=== PATIENT | male | born 1955 | race Caucasian/White ===

== ENCOUNTER 2016-04-18 11:23 | Emergency (ER) | payer BC, OTHER ==
[2016-04-18] MEDS ORDERED: OXYCODONE-ACETAMINOPHEN 5-325 MG TABLET PO ONE (11:41)
--- NOTE | 2016-04-18 11:41 | ER Document Report ---
ED Medical Screen (RME) - General Stated Complaint: BACK PAIN Notes: onest: last night patient is a 61 year old male p/w right flank pain, local without radiation low UOP, no blood in urine h/o kidney stones I have greeted and performed a rapid initial assessment of this patient. A comprehensive ED assessment and evaluation of the patient, analysis of test results and completion of the medical decision making process will be conducted by additional ED providers. TRAVEL OUTSIDE OF THE [place] IN LAST 30 DAYS: No - Related Data Allergies/Adverse Reactions: ciprofloxacin [From Cipro] Allergy (Verified 04/18/16 11:39) ciprofloxacin HCl [From Cipro] Allergy (Verified 04/18/16 11:39) Penicillins Allergy (Verified 04/18/16 11:39) sulfamethoxazole [From Bactrim] Allergy (Verified 04/18/16 11:39) trimethoprim [From Bactrim] Allergy (Verified 04/18/16 11:39) Past Medical History - Past Medical History Cardiac Medical History: Reports: Hx Hypercholesterolemia Renal/ Medical History: Reports: Hx Kidney Stones Past Surgical History: Reports: Hx Appendectomy - Immunizations Hx Diphtheria, Pertussis, Tetanus Vaccination: Yes
[2016-04-18 12:10] LABS: ABSOLUTE EOSINOPHILS # (AUTO) 0.1 10^3/uL (0.0-0.6); ABSOLUTE LYMPHOCYTES (AUTO) 1.1 10^3/uL (0.5-4.7); ABSOLUTE NEUT (AUTO) 11.8 10^3/uL (1.7-8.2); BASOPHILS % (AUTO) 0.3 % (0-2); EOSINOPHILS % (AUTO) 0.6 % (0-6); HEMATOCRIT 43.7 % (37.9-51.0); HEMOGLOBIN 14.9 g/dL (13.5-17.0); MEAN CORPUSCULAR HEMOGLOBIN 31.9 pg (27.0-33.4); MEAN CORPUSCULAR HGB CONC 34.2 g/dL (32.0-36.0); MEAN CORPUSCULAR VOLUME 93 fl (80-97); MONOCYTES % (AUTO) 6.8 % (3-13); RED BLOOD COUNT 4.68 10^6/uL (4.35-5.55); RED CELL DISTRIBUTION WIDTH 12.8 % (11.5-14.0); SEGMENTED NEUTROPHILS % (AUTO) 84.3 % (42-78)
[2016-04-18 12:22] LABS: ALANINE AMINOTRANSFERASE 35 U/L (21-72); ALBUMIN 4.1 g/dL (3.5-5.0); ALKALINE PHOSPHATASE 64 U/L (38-126); ANION GAP 10 (5-19); ASPARTATE AMINO TRANSFERASE 17 U/L (17-59); BLOOD UREA NITROGEN 26 mg/dL (7-20); CALCIUM 9.6 mg/dL (8.4-10.2); CARBON DIOXIDE 27 mmol/L (22-30); CHLORIDE 101 mmol/L (98-107); CREATININE RESULT 1.42 mg/dL (0.52-1.25); GLUCOSE 107 mg/dL (75-110); POTASSIUM 4.6 mmol/L (3.6-5.0); SODIUM 137.8 mmol/L (137-145); TOTAL PROTEIN 6.9 g/dL (6.3-8.2)
[2016-04-18 12:26] LABS: APPEARANCE,URINE SLIGHTLY-CLOUDY; BILIRUBIN,URINE NEGATIVE (NEGATIVE); GLUCOSE, URINE NEGATIVE (NEGATIVE); KETONES,URINE 20 mg/dL (NEGATIVE); LEUKOCYTE ESTERASE,URINE NEGATIVE (NEGATIVE); NITRITE,URINE NEGATIVE (NEGATIVE); PROTEIN,URINE NEGATIVE (NEGATIVE); UROBILINOGEN,URINE NEGATIVE mg/dL (<2.0)
[2016-04-18] MEDS ORDERED: TAMSULOSIN HCL 0.4 MG CAP.SR.24H PO ONE (14:46)
--- NOTE | 2016-04-18 15:00 | ER Document Report ---
ED General - General Chief Complaint: Possible Kidney Stone Stated Complaint: BACK PAIN TRAVEL OUTSIDE OF THE [place] IN LAST 30 DAYS: No - HPI Patient complains to provider of: right flank pain Notes: Patient coming in for evaluation of right flank pain. Patient has history of kidney stones. Patient states right flank pain acute onset similar to kidney stones the past. Patient states she has multiple kidney stones. Denies any fevers chills nausea vomiting trauma - Related Data Allergies/Adverse Reactions: ciprofloxacin [From Cipro] Allergy (Verified 04/18/16 11:39) Penicillins Allergy (Verified 04/18/16 11:39) sulfamethoxazole [From Bactrim] Allergy (Verified 04/18/16 11:39) trimethoprim [From Bactrim] Allergy (Verified 04/18/16 11:39) Past Medical History - Social History Smoking Status: Current Every Day Smoker Chew tobacco use (# tins/day): No Frequency of alcohol use: None Drug Abuse: None Family History: Reviewed & Not Pertinent Patient has suicidal ideation: No Patient has homicidal ideation: No - Past Medical History Cardiac Medical History: Reports: Hx Hypercholesterolemia Renal/ Medical History: Reports: Hx Kidney Stones. Denies: Hx Peritoneal Dialysis Past Surgical History: Reports: Hx Appendectomy - Immunizations Hx Diphtheria, Pertussis, Tetanus Vaccination: Yes Review of Systems - Review of Systems Constitutional: No symptoms reported EENT: No symptoms reported Cardiovascular: No symptoms reported Respiratory: No symptoms reported Gastrointestinal: No symptoms reported Genitourinary: Flank pain Male Genitourinary: No symptoms reported Musculoskeletal: No symptoms reported Skin: No symptoms reported Hematologic/Lymphatic: No symptoms reported Neurological/Psychological: No symptoms reported -: Yes All other systems reviewed and negative Physical Exam - Vital signs Vitals: Temp Pulse Resp BP Pulse Ox 97.9 F 16 L 57 H 139/69 H 97 04/18/16 11:40 04/18/16 11:40 04/18/16 11:40 04/18/16 11:40 04/18/16 11:40 Interpretation: Normal - General General appearance: Appears well, Alert - HEENT Head: Normocephalic, Atraumatic Eyes: Normal Pupils: PERRL - Respiratory Respiratory status: No respiratory distress Chest status: Nontender Breath sounds: Normal Chest palpation: Normal - Cardiovascular Rhythm: Regular Heart sounds: Normal auscultation Murmur: No - Abdominal Inspection: Normal Distension: No distension Bowel sounds: Normal Tenderness: Nontender Organomegaly: No organomegaly - Back Back: Normal, Nontender - Extremities General upper extremity: Normal inspection, Nontender, Normal color, Normal ROM , Normal temperature General lower extremity: Normal inspection, Nontender, Normal color, Normal ROM , Normal temperature, Normal weight bearing. No: Pranay's sign - Neurological Neuro grossly intact: Yes Cognition: Normal Orientation: AAOx4 [place] Coma Scale Eye Opening: Spontaneous [place] Coma Scale Verbal: Oriented [place] Coma Scale Motor: Obeys Commands Jori Coma Scale Total: 15 Speech: Normal Motor strength normal: LUE, RUE, LLE, RLE Sensory: Normal - Psychological Associated symptoms: Normal affect, Normal mood - Skin Skin Temperature: Warm Skin Moisture: Dry Skin Color: Normal Course - Re-evaluation Re-evalutation: 04/18/16 14:53 CT scan showed some hydronephrosis with to kidney stones in the right side one of which look to be in the bladder. Patient will be given pain medication nausea medication Flomax for home. Patient's follow-up with his urologist. - Vital Signs Vital signs: Temp Pulse Resp BP Pulse Ox 97.9 F 16 L 57 H 139/69 H 97 04/18/16 11:40 04/18/16 11:40 04/18/16 11:40 04/18/16 11:40 04/18/16 11:40 - Laboratory Result Diagrams: 04/18/16 11:57 04/18/16 11:57 Laboratory results interpreted by me: 04/18/16 04/18/16 04/18/16 11:57 11:57 11:57 WBC 14.0 H Seg Neutrophils % 84.3 H Lymphocytes % 8.0 L Absolute Neutrophils 11.8 H BUN 26 H Creatinine 1.42 H Est GFR (Non-Af Amer) 51 L Urine Ketones 20 H Urine Blood LARGE H Discharge - Discharge Clinical Impression: Kidney stone on right side Condition: Good Disposition: HOME, SELF-CARE Instructions: Kidney Stone ([facility]), Oral Narcotic Medication ([facility]), Stool Softener ([facility]) Additional Instructions: Please follow-up with your primary care physician/urologist. Take medications as prescribed. Prescriptions: Ondansetron [Zofran Odt 4 mg Tablet] 1 - 2 tab PO Q4H PRN #20 tab.rapdis PRN Reason: For Nausea/Vomiting Oxycodone HCl 5 mg PO Q6 #30 tablet Tamsulosin HCl [Flomax 0.4 mg Cap.sr] 0.4 mg PO DAILY #7 cap.sr.24h Forms: Return to Work Referrals: NILSA BLUE PA-C [Primary Care Provider] - Follow up in 3-5 days
[2016-04-18 15:25] VITALS: BP 131/74
== END 2016-04-18 15:15 | disposition home or self-care (01) ==
LOC: ER 11:23
DX: N20.0 Calculus of kidney (principal); R10.9 Unspecified abdominal pain; F17.200 Nicotine dependence, unspecified, uncomplicated; E78.00 Pure hypercholesterolemia, unspecified; Z87.442 Personal history of urinary calculi; Z88.0 Allergy status to penicillin; Z88.3 Allergy status to other anti-infective agents
CPT/HCPCS: 36415; 76380; 80053; 81001; 85025; 87086; 99284

== ENCOUNTER 2016-12-13 21:43 | Emergency (ER) | payer BC, MEDICAID ==
[2016-12-13] MEDS ORDERED: MORPHINE SULFATE 10 MG/ML INJ IV PRN (22:07)
[2016-12-13 22:47] LABS: ABSOLUTE BASOPHILS # (AUTO) 0.1 10^3/uL (0.0-0.2); ABSOLUTE EOSINOPHILS # (AUTO) 0.4 10^3/uL (0.0-0.6); ABSOLUTE LYMPHOCYTES (AUTO) 1.8 10^3/uL (0.5-4.7); ABSOLUTE MONOCYTES (AUTO) 0.7 10^3/uL (0.1-1.4); ABSOLUTE NEUT (AUTO) 11.7 10^3/uL (1.7-8.2); BASOPHILS % (AUTO) 0.6 % (0-2); EOSINOPHILS % (AUTO) 2.8 % (0-6); HEMATOCRIT 47.6 % (37.9-51.0); HEMOGLOBIN 16.6 g/dL (13.5-17.0); HGB HCT DIFFERENCE 2.2; LYMPHOCYTES % (AUTO) 12.4 % (13-45); MEAN CORPUSCULAR VOLUME 94 fl (80-97); RED BLOOD COUNT 5.05 10^6/uL (4.35-5.55); RED CELL DISTRIBUTION WIDTH 13.4 % (11.5-14.0); SEGMENTED NEUTROPHILS % (AUTO) 79.2 % (42-78); WHITE BLOOD COUNT 14.7 10^3/uL (4.0-10.5)
[2016-12-13 23:07] LABS: ALANINE AMINOTRANSFERASE 36 U/L (21-72); ALBUMIN 4.6 g/dL (3.5-5.0); ALKALINE PHOSPHATASE 59 U/L (38-126); ANION GAP 13 (5-19); ASPARTATE AMINO TRANSFERASE 24 U/L (17-59); BILIRUBIN,DIRECT 0.4 mg/dL (0.0-0.4); BILIRUBIN,TOTAL 0.7 mg/dL (0.2-1.3); BLOOD UREA NITROGEN 25 mg/dL (7-20); CALCIUM 10.2 mg/dL (8.4-10.2); CARBON DIOXIDE 23 mmol/L (22-30); CHLORIDE 105 mmol/L (98-107); CREATININE RESULT 1.42 mg/dL (0.52-1.25); GLUCOSE 113 mg/dL (75-110); LIPASE 168.5 U/L (23-300); POTASSIUM 4.9 mmol/L (3.6-5.0); SODIUM 140.5 mmol/L (137-145); TOTAL PROTEIN 7.2 g/dL (6.3-8.2)
[2016-12-13 23:38] LABS: APPEARANCE,URINE CLOUDY; BILIRUBIN,URINE NEGATIVE (NEGATIVE); GLUCOSE, URINE NEGATIVE (NEGATIVE); KETONES,URINE TRACE mg/dL (NEGATIVE); LEUKOCYTE ESTERASE,URINE NEGATIVE (NEGATIVE); NITRITE,URINE NEGATIVE (NEGATIVE); PROTEIN,URINE 30 mg/dL (NEGATIVE); URINE SPECIFIC GRAVITY 1.017; UROBILINOGEN,URINE NEGATIVE mg/dL (<2.0)
--- NOTE | 2016-12-13 23:53 | RADIOLOGY REPORT (SQ) ---
EXAM DESCRIPTION: CT LTD RENAL STONE PROTOCOL ON COMPLETED DATE/TIME: 12/13/2016 10:38 pm REASON FOR STUDY: RIGHT FLANK PAIN COMPARISON: March 2016 TECHNIQUE: CT scan of the abdomen and pelvis performed without intravenous or oral contrast. Images reviewed with lung, soft tissue, and bone windows. Reconstructed coronal and sagittal MPR images revi ewed. All images stored on PACS. All CT scanners at this facility use dose modulation, iterative reconstruction, and/or weight based d osing when appropriate to reduce radiation dose to as low as reasonably achievable (ALARA). [facility]: Dose Right [facility]: CareDose [facility]: Dose Right [facility]: Teradose 4D [facility]: [employer] RADIATION DOSE: Up-to-date CT equipment and radiation dose reduction techniques were employed. CTDIv ol: 13.7 mGy. DLP: 693 mGy-cm.mGy. LIMITATIONS: None. FINDINGS: LOWER CHEST: No significant findings. No nodules or infiltrates. NON-CONTRASTED LIVER, SPLEEN, ADRENALS: Evaluation limited by lack of IV contrast. No identified sign ificant masses. The previously described hepatic cyst in the left lobe of the liver appears stable. PANCREAS: No masses. No peripancreatic inflammatory changes. GALLBLADDER: No identified stones by CT criteria. No inflammatory changes to suggest cholecystitis. RIGHT KIDNEY AND URETER: No suspicious masses. Assessment limited by lack of IV contrast. Nonobstru cting renal calculi are again identified. An obstructing calculus is identified in the distal right ureter best seen on image number 71 measuring 4.8 mm in diameters. There is hydronephrosis of the r ight kidney and dilatation of the right ureter proximal to this level. LEFT KIDNEY AND URETER: No suspicious masses. Assessment limited by lack of IV contrast. Nonobstruc ting renal calculi are again identified. No hydronephrosis or hydroureter. AORTA AND RETROPERITONEUM: No aneurysm. No retroperitoneal masses or adenopathy. BOWEL AND PERITONEAL CAVITY: No obvious masses or inflammatory changes. No free fluid. APPENDIX: Not identified PELVIS, BLADDER, AND ABDOMINAL WALL:No abnormal masses. No free fluid. 2 small bladder calculi are i dentified. BONES: No significant findings. OTHER: No other significant finding. IMPRESSION: Bilateral nonobstructing renal calculi. 4.8 mm in diameter calculus in the distal right ureter. A couple small bladder calculi are identified. Other findings as noted above COMMENT: Quality ID # [id number]: Final reports with documentation of one or more dose reduction techniques (e.g., Automated exposure control, adjustment of the mA and/or kV according to patient size, use of iterative reconstruction technique) TECHNICAL DOCUMENTATION: JOB ID: [id number] [employer]- All Rights Reserved
[2016-12-14] MEDS ORDERED: KETOROLAC TROMETHAMINE INJ/PF 30 MG/1 ML SDV IM ONE (00:02)
[2016-12-14] MEDS ORDERED: ONDANSETRON 4 MG TAB.RAPDIS PO ONE (00:02)
--- NOTE | 2016-12-14 00:03 | ER Document Report ---
ED General - General Chief Complaint: Possible Kidney Stone Stated Complaint: FLANK PAIN Time Seen by Provider: 12/14/16 00:02 TRAVEL OUTSIDE OF THE [place] IN LAST 30 DAYS: No - HPI Notes: Patient is a 61-year-old male with a history of kidney stones who presents the ED complaining of right flank pain 1 day. Patient states that the pain is in his flank and radiates to his right groin. Patient states that he has had associated nausea without any vomiting. He is still able to eat and drink, but does have a decreased appetite. He has not been taking any [id number] meds for symptoms. Pain is described as intermittent and sharp. Patient states that he does not have any trouble urinating nor is he noticed any hematuria. Patient denies any flank pain. Denies any headache, fever, URI, sore throat, chest pain, palpitations, syncope, cough, shortness of breath, wheeze, dyspnea, vomiting/diarrhea, urinary retention, dysuria, hematuria, loss of control of bowel or bladder, numbness/tingling, saddle anesthesia, muscle paralysis/weakness, or rash. Patient denies any IV drug use. - Related Data Allergies/Adverse Reactions: ciprofloxacin [From Cipro] Allergy (Verified 04/18/16 11:39) Penicillins Allergy (Verified 04/18/16 11:39) sulfamethoxazole [From Bactrim] Allergy (Verified 04/18/16 11:39) trimethoprim [From Bactrim] Allergy (Verified 04/18/16 11:39) Past Medical History - Social History Smoking Status: Current Every Day Smoker Frequency of alcohol use: None Drug Abuse: None Family History: Reviewed & Not Pertinent Patient has suicidal ideation: No Patient has homicidal ideation: No - Past Medical History Cardiac Medical History: Reports: Hx Hypercholesterolemia Renal/ Medical History: Reports: Hx Kidney Stones. Denies: Hx Peritoneal Dialysis Past Surgical History: Reports: Hx Appendectomy - Immunizations Hx Diphtheria, Pertussis, Tetanus Vaccination: Yes Review of Systems - Review of Systems Notes: REVIEW OF SYSTEMS: CONSTITUTIONAL : Denies fever, chills, or sweats. Denies recent illness. EENT: Denies eye, ear, throat, or mouth pain or symptoms. Denies nasal or sinus congestion or discharge. Denies throat, tongue, or mouth swelling or difficulty swallowing. CARDIOVASCULAR: Denies chest pain. Denies palpitations or racing or irregular heart beat. Denies ankle edema. RESPIRATORY: Denies cough, cold, or chest congestion. Denies shortness of breath, difficulty breathing, or wheezing. GASTROINTESTINAL: see hpi GENITOURINARY: Denies difficulty urinating, painful urination, burning, frequency, blood in urine, or discharge. MUSCULOSKELETAL: Denies back or neck pain or stiffness. Denies joint pain or swelling. SKIN: Denies rash, lesions or sores. NEUROLOGICAL: Denies confusion or altered mental status. Denies passing out or loss of consciousness. Denies dizziness or lightheadedness. Denies headache. Denies weakness or paralysis or loss of use of either side. Denies problems with gait or speech. Denies sensory loss, numbness, or tingling. ALL OTHER SYSTEMS REVIEWED AND NEGATIVE. Dictation was performed using [employer] voice recognition software Physical Exam - Vital signs Vitals: Temp Pulse Resp BP Pulse Ox 97.9 F 44 L 22 H 142/69 H 95 12/13/16 22:04 12/13/16 22:04 12/13/16 22:04 12/13/16 22:04 12/13/16 22:04 Notes: PHYSICAL EXAMINATION: GENERAL: Well-appearing, well-nourished and in no acute distress. A&O HEAD: Atraumatic, normocephalic. EYES: Pupils equal round and reactive to light, extraocular movements intact, sclera anicteric, conjunctiva are normal. ENT: Nares patent and without discharge. oropharynx clear without exudates. No tonsilar hypertrophy or erythema. Moist mucous membranes. No sinus tenderness. NECK: Normal range of motion, supple without lymphadenopathy. No rigidity. LUNGS: Breath sounds clear to auscultation bilaterally and equal. No wheezes rales or rhonchi. HEART: Regular rate and rhythm without murmurs, rubs, gallops. ABDOMEN: Soft, nontender, nondistended abdomen. No guarding, no rebound. No masses appreciated. Normal bowel sounds present. No CVA tenderness bilaterally. Musculoskeletal: LE's b/l: FROM to passive/active. Strength 5+/5. No focal deficits. Extremities: No cyanosis, clubbing, or edema b/l. Peripheral pulses 2+. Capillary refill less than 3 seconds. NEUROLOGICAL: Normal speech, normal gait. Normal sensory, motor exams PSYCH: Normal mood, normal affect. SKIN: Warm, Dry, normal turgor, no rashes or lesions noted. Course - Re-evaluation Re-evalutation: 12/14/16 00:23 Patient is an afebrile, well-hydrated, 61-year-old male who presents to the ED with a right ureteral stone and bladder stones. Vitals are stable--pulse of 60 on exam. PE otherwise unremarkable. CBC did show a slightly elevated white count. CMP shows mild chronic kidney disease. Lipase unremarkable. Urinalysis was unremarkable aside from the hematuria for any urosepsis. Toradol 30 mg given IM today Along with 4 mg Zofran p.o. Pt tolerating PO intake. I will send him home with a prescription for Zofran, oxycodone, and Flomax. Patient to strain urine. Low suspicion/risk for acute appendicitis, bowel obstruction, acute cholecystitis, perforated diverticulitis, incarcerated hernia, pancreatitis, perforated ulcer, peritonitis, sepsis, testicular torsion , or other systemic emergent condition at this time. Patient is aware that his condition can change from initial presentation and he needs to monitor symptoms closely and seek medical attention if any acute changes. Conservative measures otherwise for symptoms. Recheck with PCM in 2-3 days. Consider consult with a urologist. Return to the ED with any worsening/concerning symptoms otherwise as reviewed in discharge. Patient is in agreement. - Vital Signs Vital signs: Temp Pulse Resp BP Pulse Ox 97.9 F 44 L 22 H 142/69 H 95 12/13/16 22:04 12/13/16 22:04 12/13/16 22:04 12/13/16 22:04 12/13/16 22:04 - Laboratory Result Diagrams: 12/13/16 22:30 12/13/16 22:30 Laboratory results interpreted by me: 12/13/16 12/13/16 12/13/16 22:30 22:30 22:44 WBC 14.7 H Seg Neutrophils % 79.2 H Lymphocytes % 12.4 L Absolute Neutrophils 11.7 H BUN 25 H Creatinine 1.42 H Est GFR (Non-Af Amer) 51 L Glucose 113 H Urine Protein 30 H Urine Ketones TRACE H Urine Blood LARGE H Discharge - Discharge Clinical Impression: Ureteral stone, Bladder stones, Renal stones Condition: Stable Disposition: HOME, SELF-CARE Instructions: Kidney Stone ([facility]), Flomax ([facility]), Antinausea Medication ([facility]), Oral Narcotic Medication ([facility]) Additional Instructions: Push fluids (i.e. water, cranberry juice) Proper hygenic technique Keep the skin clean Tylenol/ibuprofen as needed May use over the counter AZO for burning with urination Take medications as directed F/u with your PCM in 2-3 days for a recheck Consider consult with a Urologist for ongoing/worsening symptoms. Return to the ED with any worsening symptoms and/or development of fever, headache, chest pain, palpitations, syncope, shortness of breath, trouble breathing, abdominal pain, n/v/d, blood in stool/urine, loss of control of bowel /bladder, urinary retention, muscle weakness/paralysis, saddle anesthesia, numbness/tingling, or other worsening symptoms that are concerning to you. Prescriptions: Ondansetron [Zofran Odt 4 mg Tablet] 1 - 2 tab PO Q4H PRN #15 tab.rapdis PRN Reason: For Nausea/Vomiting Oxycodone HCl/Acetaminophen [Oxycodone-Acetaminophen 5-325] 1 each PO TID PRN # 15 tablet PRN Reason: Tamsulosin HCl [Flomax] 0.4 mg PO DAILY #10 cap.er.24h Forms: Elevated Blood Pressure, Smoking Cessation Education Referrals: [facility] [Provider Group] - Follow up as needed
[2016-12-14 00:54] VITALS: BP 136/79
== END 2016-12-14 00:48 | disposition home or self-care (01) ==
LOC: ER 21:43
DX: N20.2 Calculus of kidney with calculus of ureter (principal); N21.0 Calculus in bladder; R10.9 Unspecified abdominal pain; E78.00 Pure hypercholesterolemia, unspecified; Z87.442 Personal history of urinary calculi; Z88.3 Allergy status to other anti-infective agents; Z88.0 Allergy status to penicillin
CPT/HCPCS: 99284; 96372; 36415; 83690; 85025; 80053; 81001; 76380; J1885

== ENCOUNTER 2017-01-11 12:32 | Observation (INO) | payer BC, MEDICAID ==
[2017-01-11] MEDS ORDERED: NITROGLYCERIN 2% OINTMENT 1 GM PACKET TP ONE (13:06)
[2017-01-11] MEDS ORDERED: NORMAL SALINE 1000 ML 1,000 ML IV ONE (13:23)
[2017-01-11 13:31] LABS: ABSOLUTE BASOPHILS # (AUTO) 0.1 10^3/uL (0.0-0.2); ABSOLUTE EOSINOPHILS # (AUTO) 0.4 10^3/uL (0.0-0.6); ABSOLUTE LYMPHOCYTES (AUTO) 2.2 10^3/uL (0.5-4.7); ABSOLUTE MONOCYTES (AUTO) 0.7 10^3/uL (0.1-1.4); ABSOLUTE NEUT (AUTO) 4.5 10^3/uL (1.7-8.2); BASOPHILS % (AUTO) 0.8 % (0-2); EOSINOPHILS % (AUTO) 5.2 % (0-6); HEMATOCRIT 47.3 % (37.9-51.0); HEMOGLOBIN 16.8 g/dL (13.5-17.0); HGB HCT DIFFERENCE 3.1; MEAN CORPUSCULAR HEMOGLOBIN 32.6 pg (27.0-33.4); MEAN CORPUSCULAR HGB CONC 35.5 g/dL (32.0-36.0); MEAN CORPUSCULAR VOLUME 92 fl (80-97); MONOCYTES % (AUTO) 8.5 % (3-13); RED BLOOD COUNT 5.15 10^6/uL (4.35-5.55); RED CELL DISTRIBUTION WIDTH 12.9 % (11.5-14.0); SEGMENTED NEUTROPHILS % (AUTO) 57.5 % (42-78); WHITE BLOOD COUNT 7.8 10^3/uL (4.0-10.5)
[2017-01-11 13:43] LABS: PROTHROMBIN TIME 13.2 SEC (11.4-15.4)
[2017-01-11 13:44] LABS: PARTIAL THROMBOPLASTIN TIME 32.2 SEC (23.5-35.8)
[2017-01-11 13:49] LABS: ALANINE AMINOTRANSFERASE 29 U/L (21-72); ALBUMIN 4.5 g/dL (3.5-5.0); ALKALINE PHOSPHATASE 53 U/L (38-126); ANION GAP 12 (5-19); ASPARTATE AMINO TRANSFERASE 18 U/L (17-59); BILIRUBIN,DIRECT 0.4 mg/dL (0.0-0.4); BILIRUBIN,TOTAL 0.9 mg/dL (0.2-1.3); BLOOD UREA NITROGEN 20 mg/dL (7-20); CALCIUM 9.8 mg/dL (8.4-10.2); CARBON DIOXIDE 29 mmol/L (22-30); CHLORIDE 103 mmol/L (98-107); CREATINE KINASE 197 U/L (55-170); CREATININE RESULT 1.28 mg/dL (0.52-1.25); GLUCOSE 79 mg/dL (75-110); MAGNESIUM 2.2 mg/dL (1.6-2.3); POTASSIUM 4.4 mmol/L (3.6-5.0); SODIUM 143.9 mmol/L (137-145); TOTAL PROTEIN 6.9 g/dL (6.3-8.2)
--- NOTE | 2017-01-11 14:08 | RADIOLOGY REPORT (SQ) ---
EXAM DESCRIPTION: CHEST SINGLE VIEW COMPLETED DATE/TIME: 01/11/2017 1:37 pm REASON FOR STUDY: chest pain COMPARISON: 02/12/2016 EXAM PARAMETERS: NUMBER OF VIEWS: One view. TECHNIQUE: Single frontal radiographic view of the chest acquired. RADIATION DOSE: NA LIMITATIONS: None. FINDINGS: LUNGS AND PLEURA: No opacities, masses or pneumothorax. No pleural effusion. MEDIASTINUM AND HILAR STRUCTURES: No masses. Contour normal. HEART AND VASCULAR STRUCTURES: Heart normal in size. Normal vasculature. BONES: No acute findings. HARDWARE: None in the chest. OTHER: No other significant finding. IMPRESSION: NO ACUTE RADIOGRAPHIC FINDING IN THE CHEST. TECHNICAL DOCUMENTATION: JOB ID: [id number]
[2017-01-11 14:09] LABS: CREATINE KINASE MB 1.99 ng/mL (<4.55); TROPONIN I < 0.012 ng/mL
--- NOTE | 2017-01-11 15:06 | ER Document Report ---
ED General - General Chief Complaint: Chest Pain > 30 Stated Complaint: CHEST PAIN,LIGHTHEADED Time Seen by Provider: 01/11/17 12:59 TRAVEL OUTSIDE OF THE [place] IN LAST 30 DAYS: No - HPI Patient complains to provider of: Chest pain Notes: Patient coming in with intermittent chest pain ongoing for the last week. Patient is worse today. Denies any fever chills nausea vomiting. Patient states of a history of cardiac catheterization with stent placement also states he had stenosis of multiple vessels however no stent placement at that time. Patient states catheter position was marked and 1 2 years ago. States has not had any further evaluation no echo stress test. States recently changed his ophthalmologist retina specialist to Dr. Low PCP is Dr. Martinez. Patient resting comfortably upon my evaluation states slight chest pain. No recent travel no recent trauma. - Related Data Allergies/Adverse Reactions: ciprofloxacin [From Cipro] Allergy (Verified 04/18/16 11:39) Penicillins Allergy (Verified 04/18/16 11:39) sulfamethoxazole [From Bactrim] Allergy (Verified 04/18/16 11:39) trimethoprim [From Bactrim] Allergy (Verified 04/18/16 11:39) Past Medical History - Social History Smoking Status: Current Every Day Smoker Chew tobacco use (# tins/day): No Frequency of alcohol use: Social Drug Abuse: None Family History: Reviewed & Not Pertinent - Past Medical History Cardiac Medical History: Reports: Hx Hypercholesterolemia Renal/ Medical History: Reports: Hx Kidney Stones. Denies: Hx Peritoneal Dialysis Past Surgical History: Reports: Hx Appendectomy - Immunizations Hx Diphtheria, Pertussis, Tetanus Vaccination: Yes Review of Systems - Review of Systems Constitutional: No symptoms reported EENT: No symptoms reported Cardiovascular: Chest pain Respiratory: No symptoms reported Gastrointestinal: No symptoms reported Genitourinary: No symptoms reported Male Genitourinary: No symptoms reported Musculoskeletal: No symptoms reported Skin: No symptoms reported Hematologic/Lymphatic: No symptoms reported Neurological/Psychological: No symptoms reported -: Yes All other systems reviewed and negative Physical Exam - Vital signs Vitals: Pulse Ox 96 01/11/17 12:52 Interpretation: Normal - General General appearance: Appears well, Alert - HEENT Head: Normocephalic, Atraumatic Eyes: Normal Pupils: PERRL - Respiratory Respiratory status: No respiratory distress Chest status: Nontender Breath sounds: Normal Chest palpation: Normal - Cardiovascular Rhythm: Regular Heart sounds: Normal auscultation Murmur: No - Abdominal Inspection: Normal Distension: No distension Bowel sounds: Normal Tenderness: Nontender Organomegaly: No organomegaly - Back Back: Normal, Nontender - Extremities General upper extremity: Normal inspection, Nontender, Normal color, Normal ROM , Normal temperature General lower extremity: Normal inspection, Nontender, Normal color, Normal ROM , Normal temperature, Normal weight bearing. No: Pranay's sign - Neurological Neuro grossly intact: Yes Cognition: Normal Orientation: AAOx4 [place] Coma Scale Eye Opening: Spontaneous [place] Coma Scale Verbal: Oriented [place] Coma Scale Motor: Obeys Commands [place] Coma Scale Total: 15 Speech: Normal Motor strength normal: LUE, RUE, LLE, RLE Sensory: Normal - Psychological Associated symptoms: Normal affect, Normal mood - Skin Skin Temperature: Warm Skin Moisture: Dry Skin Color: Normal Course - Re-evaluation Re-evalutation: 01/11/17 15:07 Chest pain of unclear etiology, evaluation for cardiac ischemia is indicated. Initial cardiac markers and EKG nondiagnostic. ASA given unless contraindicated. Based upon the presentation the patient appears to be at low risk for other serious causes of chest pain. Plan to admit to complete cardiac evaluation and observation. - Vital Signs Vital signs: Temp Pulse Resp BP Pulse Ox 53 L 22 H 125/71 94 01/11/17 13:30 01/11/17 13:30 01/11/17 13:30 01/11/17 13:30 - Laboratory Result Diagrams: 01/11/17 13:10 01/11/17 13:10 Laboratory results interpreted by me: 01/11/17 13:10 Creatinine 1.28 H Est GFR (Non-Af Amer) 57 L Creatine Kinase 197 H Discharge - Discharge Clinical Impression: Chest pain, rule out acute myocardial infarction Condition: Good Disposition: ADMITTED OBSERVATION Admitting Provider: Hospitalist Unit Admitted: Telemetry - [place] Referrals: HEATHER EVERETT PA [Primary Care Provider] - Follow up as needed
[2017-01-11] MEDS ORDERED: NORMAL SALINE 1000 ML 1,000 ML IV PRN (16:05)
[2017-01-11] MEDS ORDERED: MORPHINE SULFATE 10 MG/ML INJ IV PRN (16:05)
[2017-01-11] MEDS ORDERED: ASPIRIN 81 MG TABLET, CHEWABLE PO ONE (16:15)
--- NOTE | 2017-01-11 16:47 | PDOC H&P ---
History of Present Illness Admission Date/PCP: 01/11/17 15:43 CHELO DOTY Patient complains of: Chest pain all the time History of Present Illness: KAREN CRUZ is a 61 year old male with a history of coronary artery disease status post stent in January 2016 at [facility]. Patient states that he has been having chest pain off and on for quite some time associated with lightheadedness. Patient states the chest pain is on the left side of the chest and radiates up to the neck jaw area not to the arm he says. He is more pressure instead of a pain. Patient does not give any exacerbating or alleviating factors. Patient states that it started like this before he had his heart attack last year. Patient states that the last time it happened he was actually standing up, but normally it is not associated with activity. Patient denies any palpitation, diaphoresis nausea or vomiting. Patient denies any family history of coronary artery disease. Patient still continues to smoke. Patient states he is compliant with his cardiac medications. 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 Gaurang Low in [facility]. He has not seen a flight radio operator yet. The ED patient was found to be sinus bradycardic with normal blood pressure initial troponin negative. Patient being brought in under observation to rule out ACS. Past Medical History Cardiac Medical History: Reports: Coronary Artery Disease, Myocardial Infarction , Hyperlipidema Pulmonary Medical History: Reports: None EENT Medical History: Reports: None Neurological Medical History: Reports: None Endocrine Medical History: Reports: Obesity, Other - He was told he was borderline diabetic Renal/ Medical History: Reports: Nephrolithiasis Malignancy Medical History: Reports: None GI Medical History: Reports: None Musculoskeltal Medical History: Reports: None Skin Medical History: Reports: None Psychiatric Medical History: Reports: Tobacco Dependency Traumatic Medical History: Reports: None Hematology: Reports: None Infectious Medical History: Reports: None Past Surgical History Past Surgical History: Reports: Appendectomy Social History Information Source: Patient Smoking Status: Current Every Day Smoker Frequency of Alcohol Use: None Hx Recreational Drug Use: No Hx Prescription Drug Abuse: No - Advance Directive Resuscitation Status: Full Code Family History Family History: DM, Malignancy Parental Family History Reviewed: Yes Children Family History Reviewed: No Sibling(s) Family History Reviewed.: No Medication/Allergy Home Medications: Atorvastatin Calcium [Lipitor 40 mg Tablet] 40 mg PO QHS 01/11/17 Carvedilol [Coreg 12.5 mg Tablet] 25 mg PO Q12 01/11/17 Clopidogrel Bisulfate [Plavix 75 mg Tablet] 75 mg PO DAILY 01/11/17 Lisinopril [Prinivil 2.5 mg Tablet] 2.5 mg PO DAILY 01/11/17 Allergies/Adverse Reactions: ciprofloxacin [From Cipro] Allergy (Verified 04/18/16 11:39) Penicillins Allergy (Verified 04/18/16 11:39) sulfamethoxazole [From Bactrim] Allergy (Verified 04/18/16 11:39) trimethoprim [From Bactrim] Allergy (Verified 04/18/16 11:39) Review of Systems Constitutional: ABSENT: chills, fever(s), headache(s), weight gain, weight loss Eyes: ABSENT: visual disturbances Ears: ABSENT: hearing changes Cardiovascular: PRESENT: chest pain. ABSENT: dyspnea on exertion, edema, orthropnea, palpitations Respiratory: ABSENT: cough, hemoptysis Gastrointestinal: ABSENT: abdominal pain, constipation, diarrhea, hematemesis, hematochezia, nausea, vomiting Genitourinary: ABSENT: dysuria, hematuria Musculoskeletal: ABSENT: joint swelling Integumentary: ABSENT: rash, wounds Neurological: ABSENT: abnormal gait, abnormal speech, confusion, dizziness, focal weakness, syncope Psychiatric: ABSENT: anxiety, depression, homidical ideation, suicidal ideation Endocrine: ABSENT: cold intolerance, heat intolerance, polydipsia, polyuria Hematologic/Lymphatic: ABSENT: easy bleeding, easy bruising Physical Exam Vital Signs: Temp Pulse Resp BP Pulse Ox 53 L 19 110/67 94 01/11/17 13:30 01/11/17 15:01 01/11/17 15:01 01/11/17 15:01 General appearance: PRESENT: no acute distress, well-developed, well-nourished Head exam: PRESENT: normocephalic Eye exam: PRESENT: EOMI. ABSENT: scleral icterus Ear exam: PRESENT: normal external ear exam Mouth exam: PRESENT: moist, tongue midline Neck exam: ABSENT: carotid bruit, JVD, lymphadenopathy, thyromegaly Respiratory exam: PRESENT: clear to auscultation jhonny. ABSENT: rales, rhonchi, wheezes Cardiovascular exam: PRESENT: RRR. ABSENT: diastolic murmur, rubs, systolic murmur Pulses: PRESENT: normal dorsalis pedis pul Vascular exam: PRESENT: normal capillary refill GI/Abdominal exam: PRESENT: normal bowel sounds, soft, other - protuberant. ABSENT: distended, guarding, mass, organolmegaly, rebound, tenderness Rectal exam: PRESENT: deferred Extremities exam: PRESENT: full ROM. ABSENT: calf tenderness, clubbing, pedal edema Neurological exam: PRESENT: alert, awake, oriented to person, oriented to place , oriented to time, oriented to situation, CN II-XII grossly intact. ABSENT: motor sensory deficit Psychiatric exam: PRESENT: appropriate affect, normal mood. ABSENT: homicidal ideation, suicidal ideation Skin exam: PRESENT: dry, intact, warm. ABSENT: cyanosis, rash Results Impressions: Chest X-Ray 01/11/17 12:55 IMPRESSION: NO ACUTE RADIOGRAPHIC FINDING IN THE CHEST. Assessment & Plan - Diagnosis (1) Chest pain, rule out acute myocardial infarction Is this a current diagnosis for this admission?: Yes Plan: Patient given high-dose aspirin. Patient already on statin,beta-jarad Plavix. Will decrease the dose of beta-jarad as patient is bradycardic and borderline hypotensive. Will start patient on Ranexa. Patient blood pressure will tolerate Nitropaste. Will check lipid panel and hemoglobin A1c in the morning. Will also order cardiac echo. Continue trending serial troponins. Being that patient has prior cardiac history with stent placement January of last year will consult cardiology to evaluate patient prior to ordering any further diagnostic testing. She is being observed on telemetry. (2) Tobacco abuse Is this a current diagnosis for this admission?: Yes Plan: Will place patient on nicotine patch. Will give patient counseling on smoking cessation. - Time Time Spent: 30 to 50 Minutes Smoking Cessation Education: 3 to 10 minutes Medications reviewed and adjusted accordingly: Yes Anticipated discharge: Home Within: within 48 hours
[2017-01-11] MEDS ORDERED: ASPIRIN 325 MG TABLET, ENT COATED PO ONE (18:00)
--- NOTE | 2017-01-11 19:45 | EKG REPORT ---
SEVERITY:- ABNORMAL ECG - SINUS RHYTHM RIGHT AXIS DEVIATION PROBABLE INFERIOR INFARCT, OLD : Confirmed by: Livier Wilcox 11-Jan-2017 19:45:04
[2017-01-11] MEDS ORDERED: CARVEDILOL 12.5 MG TABLET PO SCH (22:00)
[2017-01-11] MEDS ORDERED: ATORVASTATIN CALCIUM 40 MG TABLET PO SCH (22:00)
[2017-01-11] MEDS: CARVEDILOL 3.125 MG TABLET PO SCH (22:03)
[2017-01-11] MEDS ORDERED: RANOLAZINE 500 MG TAB.SR.12H PO ONE (22:23)
[2017-01-11] MEDS: RANOLAZINE 500 MG TAB.SR.12H PO SCH (22:29)
--- NOTE | 2017-01-11 22:32 | PDOC CONSULTATION ---
Consultation Consult Date: 01/11/17 Attending physician:: SARAHI HURLEY Consult reason:: Chest pain History of Present Illness Admission Date/PCP: 01/11/17 16:05 CHELO DOTY Patient complains of: Chest pain History of Present Illness: KAREN CRUZ is a 61 year old male with a history of coronary artery disease status post stent in January 2016 at [facility]. Patient states that he has been having chest pain off and on for quite some time associated with lightheadedness. Patient states the chest pain is on the left side of the chest and radiates up to the neck jaw area not to the arm he says. He is more pressure instead of a pain. Patient does not give any exacerbating or alleviating factors. Patient states that it started like this before he had his heart attack last year. Patient states that the last time it happened he was actually standing up, but normally it is not associated with activity. Patient denies any palpitation, diaphoresis nausea or vomiting. Patient denies any family history of coronary artery disease. Patient still continues to smoke. Patient states he is compliant with his cardiac medications. 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 Gaurang Low in [facility]. He has not seen a account manager relief yet. The ED patient was found to be sinus bradycardic with normal blood pressure initial troponin negative. Patient being brought in under observation to rule out ACS. Patient gives history of chronic smoking. He denied any exertional component to the chest pain. Patient not aware of whether he is on dual antiplatelet therapy or not. Past Medical History Cardiac Medical History: Reports: Coronary Artery Disease, Myocardial Infarction , Hyperlipidema Pulmonary Medical History: Reports: None EENT Medical History: Reports: None Neurological Medical History: Reports: None Endocrine Medical History: Reports: Obesity, Other - He was told he was borderline diabetic Renal/ Medical History: Reports: Nephrolithiasis Malignancy Medical History: Reports: None GI Medical History: Reports: None Musculoskeltal Medical History: Reports: None Skin Medical History: Reports: None Psychiatric Medical History: Reports: Tobacco Dependency Traumatic Medical History: Reports: None Hematology: Reports: None Infectious Medical History: Reports: None Past Surgical History Past Surgical History: Reports: Appendectomy Social History Information Source: Patient Smoking Status: Current Every Day Smoker Frequency of Alcohol Use: None Hx Recreational Drug Use: No Hx Prescription Drug Abuse: No - Advance Directive Resuscitation Status: Full Code Family History Family History: DM, Malignancy Parental Family History Reviewed: Yes Children Family History Reviewed: Yes Sibling(s) Family History Reviewed.: Yes Medication/Allergy Home Medications: Atorvastatin Calcium [Lipitor 40 mg Tablet] 40 mg PO QHS 01/11/17 Carvedilol [Coreg 12.5 mg Tablet] 25 mg PO Q12 01/11/17 Clopidogrel Bisulfate [Plavix 75 mg Tablet] 75 mg PO DAILY 01/11/17 Lisinopril [Prinivil 2.5 mg Tablet] 2.5 mg PO DAILY 01/11/17 Allergies/Adverse Reactions: ciprofloxacin [From Cipro] Allergy (Verified 04/18/16 11:39) Penicillins Allergy (Verified 04/18/16 11:39) sulfamethoxazole [From Bactrim] Allergy (Verified 04/18/16 11:39) trimethoprim [From Bactrim] Allergy (Verified 04/18/16 11:39) Review of Systems Review of Systems: Please see history of present illness and past medical history as wall. Constitutional: No fever or chills reported. Head : No recent chronic headaches, recent head injury. Eyes: No recent eye pain, diplopia, redness, discharge, acute visual changes. Ears: No recent chronic ear pain, acute hearing loss, ear discharge. Oral cavity: No recent ulcerations, bleeding, oral cavity discomfort. Neck: No recent acute neck pain reported. Hematologic: No recent easy bruising or bleeding or hematologic malignancy reported. Lymphatic: No recent lymphatic malignancy, chronic lymphadenopathy reported yet Cardiovascular system review: See history of present illness. Respiratory system review: No recent chronic cough, hemoptysis, blood clots in the lungs reported. Mild Shortness of breath on exertion Gastrointestinal system review: Negative for any recent acute or chronic abdominal pain, hematemesis, melena, recent change in bowel habits. Genitourinary system review: No recent acute or chronic hematuria, flank pain, UTI etc. reported. Skin system review: Negative for any recent abnormal bruising, no rash, no pruritus reported. Neurologic: No prior history of strokes, mini strokes, seizure disorder. Psychologic: No history of major psychosis or major depression reported. Musculoskeletal: Minor aches and pains reported. No acute joint swelling reported. Endocrine: No recent polyuria, polydipsia, recent heat or cold intolerance. Physical Exam Vital Signs: Temp Pulse Resp BP Pulse Ox 98.2 F 73 18 109/58 L 96 01/11/17 18:15 01/11/17 19:00 01/11/17 18:15 01/11/17 18:15 01/11/17 18:15 Intake & Output 01/10/17 01/11/17 01/12/17 06:59 06:59 06:59 Weight 86.183 kg Exam: GENERAL: well-nourished and in no acute distress. Alert and oriented x3 HEAD: Atraumatic, normocephalic. EYES: Pupils equal round and reactive to light, extraocular movements intact, sclera anicteric, conjunctiva are normal. ENT: TMs normal, nares patent, oropharynx clear without exudates. Moist mucous membranes. No oral ulcerations or bleeding gums noted NECK: supple without lymphadenopathy. Trachea is central. No cervical or axillary lymphadenopathy noted. Carotids are 2+, JVD WNL LUNGS: Respiration seems nonlabored, no significant accessory muscle action noted. Breath sounds clear to auscultation bilaterally and equal noted. No wheezes rales or rhonchi noted. No significant dullness noted on percussion. CHEST: Palpation of the chest wall shows no significant chest wall tenderness. No other significant abnormalities noted. 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 ABDOMEN: Soft, no significant tenderness appreciated, normoactive bowel sounds. No guarding, no rebound. No rigidity noted . No masses appreciated. EXTREMITIES: Pedal pulses are 1-2+, no calf tenderness noted. No clubbing or cyanosis.trace to 1+ pedal edema noted NEUROLOGICAL: Focused neurological exam showed no significant neurologic deficit. Normal speech, no focal weakness appreciated. PSYCH: Normal mood, normal affect. Judgment and insight within normal limits. SKIN: No significant ecchymosis, rash, ulcerations or signs of pruritus noted. MUSCULOSKELETAL EXAM: No significant joint swelling noted. Results Laboratory Results: 01/11/17 01/11/17 16:40 21:30 Troponin I < 0.012 < 0.012 EKG Comments: 2 EKGs are available for review. Both shows sinus rhythm, no acute ST-T wave changes are noted. Impressions: Chest X-Ray 01/11/17 12:55 IMPRESSION: NO ACUTE RADIOGRAPHIC FINDING IN THE CHEST. Assessment & Plan - Diagnosis (1) Chest pain, rule out acute myocardial infarction Is this a current diagnosis for this admission?: Yes (2) Coronary artery disease Qualifiers: Coronary Disease-Associated Artery/Lesion type: [place] artery Associated angina: angina presence unspecified Is this a current diagnosis for this admission?: Yes (3) Diabetes Qualifiers: Diabetes mellitus type: type 2 Diabetes mellitus complication status: with unspecified complications Diabetes mellitus informatics manager insulin use: unspecified [facility] insulin use status Qualified Code(s): E11.8 - Type 2 diabetes mellitus with unspecified complications Is this a current diagnosis for this admission?: Yes (4) Dyslipidemia Is this a current diagnosis for this admission?: Yes (5) Tobacco abuse Is this a current diagnosis for this admission?: Yes - Notes Notes: Chest pain: Patient has some typical and atypical features of chest pain. Cardiac enzymes so far has been negative. Electrocardiogram did not show any definitive ST segment changes. Multiple differential diagnoses exist in this patient. In descending order of probability this includes underlying coronary artery disease, gastroesophageal reflux, musculoskeletal pain, referred pain from elsewhere, anxiety panic disorder etc.Patient has significant cardiac risk factors, and known CAD with prior stent placement which indicates that there is a intermediate probability of chest discomfort coming from underlying CAD. Feel that it would need to be evaluated further. Discussed evaluation to assess this. In this regard risk benefits of nuclear stress test and other alternative processes were discussed in detail. The patient prefers to undergo nuclear stress test. The small risk of radiation, myocardial infarction, , cardiac arrhythmias, respiratory distress etc. were discussed. Patient understood the risks and gave informed consent. Nuclear stress test was therefore scheduled. For risk evaluation, patient is also being scheduled for a 2-D echocardiogram. Patient questions were answered. CAD: Patient status post stent. Patient did not carry a card of where the stent is placed. Diabetes: Currently being expertly managed by hospitalist. Dyslipidemia: Continue high potency statin therapy. Tobacco abuse: Patient advised to quit smoking. - Time Time Spent: 30 to 50 Minutes - CODE STATUS was discussed, patient remains full code. Surrogate decision-maker not identified by the patient. Patient is . Multiple medical problems were addressed. More than 50% of the time spent coordinating care, discussing management plans with involved caregivers. Management plans discussed with involved personnels. Medical decision making was of moderate to high complexity, patient's has multiple comorbidities. Medications reviewed and adjusted accordingly: Yes
[2017-01-11 22:53] LABS: CHOLESTEROL 154.11 mg/dL (0-200); Direct HDL 27 mg/dL (>40); TRIGLYCERIDES 255 mg/dL (<150)
[2017-01-11 23:04] LABS: DIRECT LDL 94 mg/dL (<100)
--- NOTE | 2017-01-11 23:10 | EKG REPORT ---
SEVERITY:- BORDERLINE ECG - SINUS RHYTHM BORDERLINE RIGHT AXIS DEVIATION BORDERLINE INFERIOR Q WAVES : Confirmed by: Livier Wilcox 11-Jan-2017 23:09:54
[2017-01-12 03:46] LABS: CHOLESTEROL 127.33 mg/dL (0-200); Direct HDL 25 mg/dL (>40); TRIGLYCERIDES 202 mg/dL (<150)
[2017-01-12 03:56] LABS: DIRECT LDL 70 mg/dL (<100)
[2017-01-12 04:01] LABS: VLDL CHOLESTEROL 40.4 mg/dL (10-31)
--- NOTE | 2017-01-12 08:00 | EKG REPORT ---
SEVERITY:- ABNORMAL ECG - SINUS RHYTHM PROBABLE INFERIOR INFARCT, OLD : Confirmed on behalf of: Livier Wilcox 12-Jan-2017 07:59:49
--- NOTE | 2017-01-12 09:07 | EKG REPORT ---
SEVERITY:- BORDERLINE ECG - SINUS BRADYCARDIA BORDERLINE RIGHT AXIS DEVIATION LOW VOLTAGE IN FRONTAL LEADS : Confirmed by: Livier Wilcox 12-Jan-2017 09:06:39
[2017-01-12] MEDS ORDERED: ASPIRIN 81 MG TABLET, ENT COATED PO SCH (10:00)
[2017-01-12] MEDS ORDERED: CLOPIDOGREL BISULFATE 75 MG TABLET PO SCH (10:00)
[2017-01-12] MEDS ORDERED: AMINOPHYLLINE INJ/PF 250 MG/10 ML SDV IV ONE (10:32)
[2017-01-12] MEDS ORDERED: REGADENOSON INJ 0.4 MG/5 ML DISP.SYRIN IV ONE (10:32)
--- NOTE | 2017-01-12 11:05 | XCELERA REPORT ---
[address] [address] Transthoracic Echocardiogram Report Name: KAREN CRUZ Age: 61 yrs Gender: Male : 1955 Patient Status: Inpatient Patient Location: [address] [place] [address] Study Date: 01/12/2017 10:14 AM Height: 65 in Weight: 185 lb BSA: 1.9 m2 Procedure: A complete two-dimensional transthoracic echocardiogram was performed (2D, M-mode, spectral and color flow Doppler). The study was technically difficult with many images being suboptimal in quality. Reason For Study: CP Ordering Physician: SARAHI HURLEY Performed By: Viviana Goodman Interpretation Summary The left ventricular ejection fraction is normal. There is mild concentric left ventricular hypertrophy. LV diastolic function could not be adequately assessed. The left ventricle is grossly normal size. Wall motion cannot be accurately commented on, but no definite regional wall motion abnormalities noted. The right ventricular systolic function is normal. The right atrium is mild to moderately dilated. The left atrium is moderately dilated. There is no mitral valve stenosis. There is a mild amount of mitral regurgitation No aortic regurgitation is present. There is no aortic valve stenosis There is a trace or physiologic amount of tricuspid regurgitation Tricuspid regurgitation jet envelope not well defined to measure RV systolic pressure accurately. The aortic root is not well visualized but is probably normal size. The inferior vena cava appeared normal and decreased > 50% with respiration (RAP 5-10 mmHg) There is no pericardial effusion. MMode/2D Measurements & Calculations RVDd: 3.2 cm LVIDd: 4.8 cm FS: 47.4 % Ao root diam: IVSd: 1.2 cm LVIDs: 2.5 cm EDV(Teich): 3.1 cm LVPWd: 1.2 cm 107.0 ml Ao root area: ESV(Teich): 22.8 ml 7.6 cm2 EF(Teich): 78.7 %LA dimension: 5.0 cm LVOT diam: 2.0 cm LA A2Cs: LA length: 6.1 cm LA A4Cs: 28.0 cm2 LVOT area: 3.2 cm2 25.0 cm2 LA Vol Index (BP): LA Volume: 51.2 ml/m2 98.0 ml Doppler Measurements & Calculations MV E max clari: MV P1/2t max clari: Ao V2 max: LV V1 max P.2 cm/sec 102.2 cm/sec 141.2 cm/sec 7.7 mmHg MV A max clari: MV P1/2t: 48.8 msec Ao max PG: LV V1 max: 51.8 cm/sec 8.0 mmHg 138.6 cm/sec MV E/A: 2.0 MVA(P1/2t): 4.5 cm2 MV dec slope: GROVER(V,D): 3.1 cm2 613.3 cm/sec2 PA V2 max: TR max clari: 80.9 cm/sec 230.8 cm/sec PA max PG: TR max P.3 mmHg 2.6 mmHg Left Ventricle The left ventricle is grossly normal size. There is mild concentric left ventricular hypertrophy. The left ventricular ejection fraction is normal. LV diastolic function could not be adequately assessed. Wall motion cannot be accurately commented on, but no definite regional wall motion abnormalities noted. Right Ventricle The right ventricle is mildly dilated. There is normal right ventricular wall thickness. The right ventricular systolic function is normal. Atria The right atrium is mild to moderately dilated. The left atrium is moderately dilated. Interarterial septum not well visualized and not well dopplered. Cannot comment on ASD/PFO presence. Mitral Valve The mitral valve is grossly normal. There is no mitral valve stenosis. There is a mild amount of mitral regurgitation. Aortic Valve The aortic valve is grossly normal. There is no aortic valve stenosis. No aortic regurgitation is present. Tricuspid Valve The tricuspid valve is not well visualized secondary to technical limitations. There is no tricuspid stenosis. There is a trace or physiologic amount of tricuspid regurgitation. Tricuspid regurgitation jet envelope not well defined to measure RV systolic pressure accurately. Pulmonic Valve The pulmonic valve is not well visualized. Great Vessels The aortic root is not well visualized but is probably normal size. The inferior vena cava appeared normal and decreased > 50% with respiration (RAP 5-10 mmHg). Effusions There is no pericardial effusion. : SARAHI HURLEY > Livier Wilcox
[2017-01-12] MEDS: RANOLAZINE 500 MG TAB.SR.12H PO SCH (11:48)
[2017-01-12] MEDS: CARVEDILOL 3.125 MG TABLET PO SCH (11:51)
--- NOTE | 2017-01-12 13:05 | DRAGON STRESS TEST REPORT ---
INTRAVENOUS LEXISCAN CARDIOLITE STRESS TEST USING SINGLE PHOTON EMMISION COMPUTERIZED TOMOGRAPHIC. DATE OF PROCEDURE: January 12, 2017 INDICATION : Chest pain CARDIAC RISK FACTORS: Hypertension, dyslipidemia, known CAD with prior stent placement RESTING EKG: Sinus rhythm, no baseline ST-T wave changes noted STRESS EKG: No significant changes noted with LexiScan bolus REASON FOR TERMINATION: Protocol. PROCEDURE REPORT: Baseline heart rate 50 beats per minute with blood pressure of 112/65. Patient had no significant complaints. Heart rate at 2 minutes post bolus 81 with a blood pressure of 114/57. 3 minutes post bolus heart rate 77 with blood pressure of 111/59. No significant EKG changes were noted. Patient had no significant complaints during the procedure or postprocedure. Patient injected with Aminophyllin 75 mg at 3 minutes or later after Lexiscan bolus. CONCLUSIONS: Normal EKG and hemodynamic response to IV LexiScan. NUCLEAR DATA: At rest the patient was given 12.07 millicuries of technetium 99 sestamibi injected intravenously. As per protocol rest gated SPECT images were obtained. Subsequently the patient was given intravenous LexiScan at a dose of 0.4 mg in 5 mL intravenously, followed by flush with normal saline. Subsequently the stress dose of 37.3 millicuries of technetium 99 sestamibi was injected intravenously. As per protocol stress gated images were obtained. NUCLEAR INTERPRETATION: Both raw and processed data were used for interpretation. Visual, qualitative, computer-generated quantitative data was used. There was good myocardial uptake of technetium compound. Motion artifact and soft tissue attenuations were noted. Increased visceral uptake was noted. Increased diaphragmatic attenuation noted. Severe fixed defect noted involving the basal and mid inferior wall with minimal area of surrounding transient perfusion defect. No other definitive areas of transient perfusion or fixed defect noted. EKG gated imaging showed LV EF at 55 %, rest and stress gated EF similar visually. T. I D. ratio was 1.06. Lung heart ratio noted to be within normal limits 0.38. No significant extracardiac and abnormal radiotracer activities were noted. RV free wall uptake was noted to be WNL. IMPRESSION: Also refer to comments under nuclear interpretation. Also test results needs to be interpreted in the context of pretest probability. 1. Predominantly severe fixed defect suggestive of prior myocardial infarction noted in the basal and mid inferior wall with minimal area of surrounding ischemia. Cannot rule out this finding related to differences in diaphragmatic attenuation artifact. 2. No other definitive areas of transient or fixed defect noted. 3. EKG gated imaging shows left ventricular ejection fraction of approximately 55 %. Mild basal inferior wall hypokinesia noted. 4. Clinical correlation requested as occasionally single vessel disease or balanced ischemia could be missed. In approximately 10% of the cases Lexiscan may not cause adequate vasodilatory stress. RECOMMENDATIONS: Aggressive risk factor modification, medical therapy. Clinical correlation with echocardiogram derived ejection fraction. Inability to exercise by itself can lead to increased cardiovascular event risks. Consider cardiology consultation and or follow-up if clinically indicated. I AM AVAILABLE FOR CARDIOLOGY CONSULTATION AND FOLLOWUP IF REQUESTED BY PMD Livier Wilcox M.D., [employer] bushel worker, Board certified in cardiovascular diseases, Nuclear cardiology, Echocardiography Cardiac CT and cardiac MRI Ph. [phone] [facility]
[2017-01-12 15:18] VITALS: BP 109/58
--- NOTE | 2017-01-12 15:21 | PDOC DISCHARGE SUMMARY ---
General - Admit/Disc Date/PCP Admission Date/Primary Care Provider: 01/11/17 16:05 CHELO DOTY Discharge Date: 01/12/17 - Discharge Diagnosis (1) Chest pain, rule out acute myocardial infarction Is this a current diagnosis for this admission?: Yes (2) Tobacco abuse Is this a current diagnosis for this admission?: Yes (4) Coronary artery disease Is this a current diagnosis for this admission?: Yes (5) Dyslipidemia Is this a current diagnosis for this admission?: Yes - Additional Information Resuscitation Status: Full Code Discharge Diet: Cardiac Discharge Activity: Activity As Tolerated Home Medications: Atorvastatin Calcium [Lipitor 40 mg Tablet] 40 mg PO QHS 01/11/17 Clopidogrel Bisulfate [Plavix 75 mg Tablet] 75 mg PO DAILY 01/11/17 Lisinopril [Prinivil 2.5 mg Tablet] 2.5 mg PO DAILY 01/11/17 Aspirin [Ecotrin 81 mg EC Tablet] 81 mg PO DAILY tabec 01/12/17 Ranolazine [Ranexa 500 mg Tab.sr] 500 mg PO Q12 #60 tab.sr.12h 01/12/17 History of Present Illness History of Present Illness: KAREN CRUZ is a 61 year old male with a history of coronary artery disease status post stent in January 2016 at [facility]. Patient states that he has been having chest pain off and on for quite some time associated with lightheadedness. Patient states the chest pain is on the left side of the chest and radiates up to the neck jaw area not to the arm he says. He is more pressure instead of a pain. Patient does not give any exacerbating or alleviating factors. Patient states that it started like this before he had his heart attack last year. Patient states that the last time it happened he was actually standing up, but normally it is not associated with activity. Patient denies any palpitation, diaphoresis nausea or vomiting. Patient denies any family history of coronary artery disease. Patient still continues to smoke. Patient states he is compliant with his cardiac medications. 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 Gaurang Low in [facility]. He has not seen a kelly machine operator yet. The ED patient was found to be sinus bradycardic with normal blood pressure initial troponin negative. Patient being brought in under observation to rule out ACS. Hospital Course Hospital Course: (1) Chest pain, rule out acute myocardial infarction Patient was worked up for acute coronary syndrome. Patient stress test and echo were normal. Cardiac enzymes remain negative. EKG did not show any findings. Patient was on beta-jarad however this was held as patient is bradycardic and hypotensive. Patient was started on Ranexa for angina. Patient was evaluated by cardiology during this brief hospital stay. Patient is being discharged to follow-up with his new kelly machine operator. Patient continued on aspirin statin and Plavix. (2) Tobacco abuse She counseled on smoking cessation. Patient was given a nicotine patch while in the hospital. (3) Dyslipidemia. Patient is on high-dose statin which will be continued. (4) coronary artery disease Status post stenting last year January. Patient is currently on aspirin Plavix. Beta-jarad discontinued as patient is bradycardic and hypotensive at times. Patient appears to have angina. Patient was started on Ranexa during his hospitalization. (5) bradycardia Patient is bradycardic but asymptomatic. Patient is normally on Coreg however patient is extremely bradycardic and hypotensive at times. Physical Exam Vital Signs: Temp Pulse Resp BP Pulse Ox 97.4 F 48 L 16 96/44 L 98 01/12/17 03:42 01/12/17 07:00 01/12/17 03:42 01/12/17 03:42 01/12/17 03:42 Intake & Output 01/11/17 01/12/17 01/13/17 06:59 06:59 06:59 Intake Total 640 Output Total 900 Balance -260 Weight 84.5 kg General appearance: PRESENT: no acute distress, obese Head exam: PRESENT: atraumatic, normocephalic Eye exam: PRESENT: EOMI. ABSENT: scleral icterus Ear exam: PRESENT: normal external ear exam Mouth exam: PRESENT: moist, tongue midline Neck exam: ABSENT: carotid bruit, JVD, lymphadenopathy, thyromegaly Respiratory exam: PRESENT: clear to auscultation jhonny. ABSENT: rales, rhonchi, wheezes Cardiovascular exam: PRESENT: RRR. ABSENT: diastolic murmur, rubs, systolic murmur Pulses: PRESENT: normal dorsalis pedis pul Vascular exam: PRESENT: normal capillary refill GI/Abdominal exam: PRESENT: normal bowel sounds, soft. ABSENT: distended, guarding, mass, organolmegaly, rebound, tenderness Rectal exam: PRESENT: deferred Extremities exam: PRESENT: full ROM. ABSENT: calf tenderness, clubbing, pedal edema Neurological exam: PRESENT: alert, awake, oriented to person, oriented to place , oriented to time, oriented to situation, CN II-XII grossly intact. ABSENT: motor sensory deficit Psychiatric exam: PRESENT: appropriate affect, normal mood. ABSENT: homicidal ideation, suicidal ideation Skin exam: PRESENT: dry, intact, warm. ABSENT: cyanosis, rash Results Laboratory Results: 01/12/17 03:23 Triglycerides 202 H Cholesterol 127.33 LDL Cholesterol Direct 70 VLDL Cholesterol 40.4 H HDL Cholesterol 25 L 01/11/17 01/11/17 01/12/17 16:40 21:30 03:23 Troponin I < 0.012 < 0.012 < 0.012 Impressions: Chest X-Ray 01/11/17 12:55 IMPRESSION: NO ACUTE RADIOGRAPHIC FINDING IN THE CHEST. Qualifiers PATEINT BEING DISCHARGED WITH ANY OF THE FOLLOWING DIAGNOSIS?: No Plan Time Spent: Less than 30 Minutes - Patient is being discharge home to follow up with PCP and kelly machine operator. Betablocker being held due to bradycardia and hypotension. Patient was continued on low dose ACEI for mild LVH seen on echo.
== END 2017-01-12 16:01 | disposition home or self-care (01) ==
LOC: ER 12:32 → UNDOADMOB 15:43 → EH 15:43 → 4S 16:05 → EH 17:36
PROVIDERS: ADMIT Pediatrics; ATTEND Pediatrics
PROC: HZ31ZZZ Individual Counseling for Substance Abuse Treatment, Behavioral (ICD-10-PCS; principal; 2017-01-11)
DX: R07.89 Other chest pain (principal); I25.119 Atherosclerotic heart disease of native coronary artery with unspecified angina pectoris; E78.5 Hyperlipidemia, unspecified; I25.2 Old myocardial infarction; R00.1 Bradycardia, unspecified; I95.2 Hypotension due to drugs; T44.7X5A Adverse effect of beta-adrenoreceptor antagonists, initial encounter; F17.200 Nicotine dependence, unspecified, uncomplicated; E11.8 Type 2 diabetes mellitus with unspecified complications; Z79.899 Other long term (current) drug therapy; Z79.82 Long term (current) use of aspirin; Z79.02 Long term (current) use of antithrombotics/antiplatelets; Z95.5 Presence of coronary angioplasty implant and graft; Z90.49 Acquired absence of other specified parts of digestive tract; Z83.3 Family history of diabetes mellitus
CPT/HCPCS: 93005 ×2; 99285; 36415 ×2; 82553; 82550; 83735; 85025; 85610; 85730; 80053; 84484 ×2; 83036; 80061 ×2; 93306; 93017; 71010; 78452; 93010 ×2; 99406; A9500; J2785; J3490 ×5; J7030; J0280; Q9969